=== PATIENT | female | born 1960 | race Caucasian/White ===

== ENCOUNTER 2023-10-26 06:06 | Observation (INO) ==
[2023-10-24 16:55] LABS: Basophils # (Auto) 0.04 K/mcL (0.00-0.30); Basophils % (Auto) 0.5 % (0.0-2.0); Eosinophils # (Auto) 0.15 K/mcL (0.00-0.70); Eosinophils % (Auto) 1.9 % (0.0-7.0); Hemoglobin 11.6 g/dL (11.2-15.7); Lymphocytes # (Auto) 2.67 K/mcL (1.50-4.80); Lymphocytes % (Auto) 34.5 % (15.5-49.0); Mean Cell Volume 89.3 fL (80.0-100.0); Mean Corpuscular HGB Conc 32.2 g/dL (31.0-36.0); Mean Platelet Volume 9.3 fL (8.8-12.5); Monocytes # (Auto) 0.53 K/mcL (0.10-0.90); Monocytes % (Auto) 6.8 % (1.0-12.0); Neutrophils % (Auto) 56.3 % (38.0-78.0); Platelet Count 297 K/mcL (140-440); RBC 4.03 M/mcL (3.59-5.38); Red Cell Distribution Width 13.9 % (11.5-14.5); WBC 7.8 K/mcL (4.5-11.0)
[2023-10-24 17:14] LABS: ALT/SGPT 12 U/L (<40); AST/SGOT 26 U/L (<32); Albumin 4.2 gm/dL (3.2-5.2); Albumin/Globulin Ratio 1.8 (1.0-2.3); Alkaline Phosphatase 81 U/L (39-117); Bilirubin,Total < 0.2 mg/dL (0.1-1.0); Blood Urea Nitrogen 10 mg/dL (8-23); Calcium 9.2 mg/dL (8.6-10.4); Carbon Dioxide 23 mmol/L (22-30); Chloride 103 mmol/L (96-108); Globulin 2.3 gm/dL (2.2-3.7); Glomerular Filtration Rate 93; Glucose 96 mg/dL (70-105)
[2023-10-24 20:21] LABS: Prothrombin Time 13.6 sec (11.9-14.5)
[2023-10-26] MEDS ORDERED: KETAMINE 50 MG/ML Syringe IV ONE (07:08)
[2023-10-26] MEDS ORDERED: DEXAMETHASONE 10 MG/ML VIAL ONE (07:09)
[2023-10-26] MEDS ORDERED: fentaNYL 100 MCG/2 ML VIAL ONE (07:09)
[2023-10-26] MEDS ORDERED: ONDANSETRON 4 MG/2 ML VIAL ONE (07:09)
[2023-10-26] MEDS ORDERED: ROCURONIUM 10 MG/ML ML IV ONE (07:09)
[2023-10-26] MEDS ORDERED: LIDOCAINE 2% PF 5 ML VIAL ONE (07:09)
[2023-10-26] MEDS ORDERED: PROPOFOL 200 MG/20 ML VIAL IV ONE (07:09)
[2023-10-26] MEDS: ceFAZolin 2 GM in DEXTROSE 5% IN WATER 50 ML IV SCH (07:14)
[2023-10-26] MEDS: SCOPOLAMINE 1 PATCH PATCH TOPICAL ONE (07:15)
[2023-10-26] MEDS ORDERED: GLYCOPYRROLATE 0.2 MG/ML VIAL IV ONE (07:50)
[2023-10-26] MEDS ORDERED: ePHEDrine 50 MG/5 ML SYRINGE (ANEST) IV ONE (07:50)
[2023-10-26] MEDS ORDERED: SUGAMMADEX SODIUM 200 MG/2 ML VIAL IV ONE (08:03)
[2023-10-26] MEDS ORDERED: MEPERIDINE 25 MG/ML VIAL IV PRN (08:07)
[2023-10-26] MEDS ORDERED: KETOROLAC 15 MG/ML VIAL IV PRN (08:07)
[2023-10-26] MEDS ORDERED: LACTATED RINGERS 250 ML IV PRN (08:07)
[2023-10-26] MEDS ORDERED: IPRATROPIUM/ALBUTEROL 3 ML AMPUL.NEB NEB PRN (08:07)
[2023-10-26] MEDS ORDERED: PROMETHAZINE 25 MG/ML VIAL IV PRN (08:07)
[2023-10-26] MEDS ORDERED: NALOXONE HCL 0.4 MG/ML VIAL IV PRN (08:07)
[2023-10-26] MEDS ORDERED: fentaNYL 100 MCG/2 ML VIAL IV PRN ×2 (08:07)
[2023-10-26] MEDS ORDERED: MIDAZOLAM 2 MG/2 ML VIAL IV PRN (08:07)
[2023-10-26] MEDS ORDERED: ONDANSETRON 4 MG/2 ML VIAL IV PRN (08:07)
[2023-10-26] MEDS ORDERED: diphenhydrAMINE 50 MG/ML VIAL IV PRN (08:07)
[2023-10-26] MEDS: ACETAMINOPHEN 1,000 MG/100 ML BAG IV ONE (08:31)
[2023-10-26] MEDS: LACTATED RINGERS 1,000 ML IV SCH ×2 (09:08→13:21)
[2023-10-26] MEDS: oxyCODONE IR 5 MG TABLET PO PRN (12:08)
[2023-10-26] MEDS: 0.9 % SODIUM CHLORIDE 10 ML SYRINGE IV SCH (13:21)
[2023-10-26] MEDS: ACETAMINOPHEN 1,000 MG/100 ML BAG IV PRN (15:47)
[2023-10-27] MEDS: ONDANSETRON 4 MG/2 ML VIAL IV PRN (00:16)
[2023-10-27 06:24] LABS: Basophils # (Auto) 0.03 K/mcL (0.00-0.30); Basophils % (Auto) 0.3 % (0.0-2.0); Eosinophils # (Auto) 0.05 K/mcL (0.00-0.70); Eosinophils % (Auto) 0.4 % (0.0-7.0); Lymphocytes # (Auto) 1.98 K/mcL (1.50-4.80); Lymphocytes % (Auto) 16.7 % (15.5-49.0); Mean Cell Volume 90.1 fL (80.0-100.0); Mean Corpuscular HGB Conc 32.3 g/dL (31.0-36.0); Mean Platelet Volume 9.3 fL (8.8-12.5); Monocytes # (Auto) 0.68 K/mcL (0.10-0.90); Monocytes % (Auto) 5.7 % (1.0-12.0); Neutrophils % (Auto) 76.7 % (38.0-78.0); Platelet Count 251 K/mcL (140-440); RBC 3.44 M/mcL (3.59-5.38); WBC 11.9 K/mcL (4.5-11.0)
[2023-10-27 06:38] LABS: ALT/SGPT 29 U/L (<40); AST/SGOT 44 U/L (<32); Albumin 3.6 gm/dL (3.2-5.2); Alkaline Phosphatase 70 U/L (39-117); Bilirubin,Direct < 0.2 mg/dL (0-0.3); Bilirubin,Total 0.2 mg/dL (0.1-1.0); Blood Urea Nitrogen 9 mg/dL (8-23); Calcium 8.5 mg/dL (8.6-10.4); Carbon Dioxide 22 mmol/L (22-30); Chloride 103 mmol/L (96-108); Globulin 1.8 gm/dL (2.2-3.7); Glomerular Filtration Rate 97; Glucose 127 mg/dL (70-105); Lactate Dehydrogenase 147 U/L (135-225); Phosphorous 3.4 mg/dL (2.5-4.5); Triglycerides 76 mg/dL (<150); Uric Acid 2.8 mg/dL (2.5-8.0)
[2023-10-27] MEDS: ACETAMINOPHEN 325 MG TABLET PO PRN (22:16)
[2023-10-28] MEDS: OMEPRAZOLE 20 MG CAPSULE PO SCH (07:39)
[2023-10-28] MEDS: LEVOTHYROXINE 75 MCG TABLET PO SCH (07:39)
[2023-10-28] MEDS: TOPIRAMATE 25 MG TABLET PO SCH (07:39)
== END 2023-10-28 14:09 | disposition home or self-care (01) ==
LOC: MEDSUR 06:06 → SUR 06:06 → MEDSUR 09:00
PROVIDERS: ADMIT Family Medicine Adult Medicine; ATTEND Family Medicine Adult Medicine